=== PATIENT | male | born 1945 | race Caucasian/White ===

== ENCOUNTER 2024-01-15 06:45 | Day surgery (SDC) | payer MEDICARE, OTHER ==
[2024-01-15] MEDS: LACTATED RINGERS 1,000 ML IV ONE (07:10)
[2024-01-15] MEDS: PROPARACAINE 0.5% OPHTH DROPS 15 ML ONE (07:10)
[2024-01-15] MEDS: KETOROLAC 0.45% OPHTH DROPS ONE (07:11)
[2024-01-15] MEDS: PHENYLEPHRINE 2.5% OPHTH 2 ML DROPS ONE (07:12)
[2024-01-15] MEDS: CYCLOPENTOLATE 1% OPHTH DROPS 2 ML RIGHTEYE ONE (07:13)
[2024-01-15] MEDS ORDERED: TRIAMCIN/MOXIFLOX OPHTHALMIC 0.6 ML VIAL IO ONE (07:39)
[2024-01-15] MEDS ORDERED: EPINEPHrine 1 MG/ML AMP ONE (07:39)
[2024-01-15] MEDS ORDERED: BSS/LIDOCAINE/EPINEPHRINE 1 ML VIAL ONE (07:39)
[2024-01-15] MEDS ORDERED: BRIMONIDINE 0.2% OPHTH DROPS 5 ML ONE (07:39)
[2024-01-15] MEDS ORDERED: MIDAZOLAM 2 MG/2 ML VIAL ONE (07:39)
[2024-01-15] MEDS ORDERED: TIMOLOL 0.5% OPHTH DROPS ONE (07:39)
--- NOTE | 2024-01-15 07:39 | ANESTHESIA ---
Pre-Anesthesia VS, & Labs - Diagnosis R senile combined cataract - Procedure extraction r cataract w IOL Vital Signs: Temp Pulse Resp BP Pulse Ox O2 Flow Rate 36.2 C L 58 L 14 139/70 H 96 01/15/24 07:05 01/15/24 07:05 01/15/24 07:05 01/15/24 07:05 01/15/24 07:05 Height: 6 ft 2.5 in Weight (kg): 105 kg Body Mass Index: 29.3 BMI Classification: Overweight - NPO >8 hours - Lab Results Lab results reviewed: Yes Home Medications and Allergies Home Medications: Ambulatory Orders Amiodarone [Pacerone] 100 mg PO DAILY 01/15/24 Apixaban [Eliquis] 5 mg PO BID 01/15/24 Lisinopril [Zestril] 40 mg PO DAILY 01/15/24 Metoprolol Succinate [Toprol Xl] 25 mg PO BID 01/15/24 Spironolactone [Aldactone] 12.5 mg PO DAILY 01/15/24 Zolpidem Tartrate [Ambien] 10 mg PO HS 01/15/24 Amiodarone [Pacerone] 100 mg PO DAILY 01/15/24 Apixaban [Eliquis] 5 mg PO BID 01/15/24 Lisinopril [Zestril] 40 mg PO DAILY 01/15/24 Metoprolol Succinate [Toprol Xl] 25 mg PO BID 01/15/24 Spironolactone [Aldactone] 12.5 mg PO DAILY 01/15/24 Zolpidem Tartrate [Ambien] 10 mg PO HS 01/15/24 Allergies/Adverse Reactions: Allergies Allergy/AdvReac Type Severity Reaction Status Date / Time No Known Drug Allergies Allergy Verified 01/15/24 07:13 Anes History & Medical History - Anesthetic History Anesthesia Complications: reports: No previous complications Family history of Anesthesia Complications: Denies Family history of Malignant Hyperthermia: Denies - Medical History Cardiovascular: reports: Hypertension, Other (RBBB) Pulmonary: reports: Other Urinary: reports: Benign prostate hypertrophy Musculoskeletal: reports: Osteoarthritis Smoking Status: Former smoker Psychosocial: reports: No issues indicated Exam General: Alert, Oriented x3, Cooperative Dental: WNL Mouth Openin Fingerbreadth Neck Mobility: Normal Mallampati classification: II Thyromental Distance: 4-6 cm Respiratory: Lungs clear, Normal breath sounds, No respiratory distress Cardiovascular: Regular rate (RBBB) Neurological: Normal speech Mental/Cognitive Status: Alert/Oriented X3, Normal for patient Cognitive Status: Within normal limits Plan Anesthesia Type: MAC Consent for Procedure(s) Verified and Reviewed: Yes Code Status: Attempt Resuscitation ASA classification: 2-Mild systemic disease Is this case an emergency?: No
[2024-01-15] MEDS: TIMOLOL 0.5% OPHTH DROPS OPTH ONE (08:03)
[2024-01-15] MEDS: BRIMONIDINE 0.2% OPHTH DROPS 5 ML OPTH ONE (08:03)
[2024-01-15] MEDS: BSS/LIDOCAINE/EPINEPHRINE 1 ML SYRINGE IO ONE (08:03)
[2024-01-15] MEDS: EPINEPHrine 1 MG/ML AMP IR ONE (08:03)
[2024-01-15] MEDS: TRIAMCIN/MOXIFLOX OPHTHALMIC 0.6 ML VIAL IO ONE (08:04)
[2024-01-15] MEDS: VANCOMYCIN OPHTH (TOPICAL) 10 MG/ML SYRINGE TOP ONE (08:04)
[2024-01-15] MEDS: PROPARACAINE 0.5% OPHTH DROPS 15 ML EACHEYE ONE (08:04)
[2024-01-15] MEDS: LACTATED RINGERS 700 ML IV ONE (08:25)
[2024-01-15 08:32] VITALS: BP 146/73; O2SAT 97
--- NOTE | 2024-01-15 08:32 | ANESTHESIA POST OP EVALUATION ---
Anesthesia Post Eval - Post Anesthesia Eval Vitals: Last Vital Signs Temp 36 C L 01/15/24 08:29 Pulse 64 01/15/24 08:29 Resp 16 01/15/24 08:29 BP 146/73 H 01/15/24 08:29 Pulse Ox 97 01/15/24 08:29 O2 Flow Rate CV Function Including HR & BP: Stable Pain Control: Satisfactory Nausea & Vomiting: Negative Mental Status: Baseline Respiratory Status: Airway Patent Hydration Status: Satisfactory Anesthesia Complications: None
--- NOTE | 2024-01-15 08:35 | OPERATIVE REPORT ---
Operative Report - Other Other Information/Narrative: Date of Surgery: 01/15/24 Preop Dx: Visually significant cataract left eye. This was the first cataract surgery. Postop Dx: Same Procedure: Phacoemulsification with posterior chamber intraocular lens implant left eye Surgeon: Dr. Justin Gilliam Anesthesia: Monitored anesthesia care Complications: None Operative Indications: This is a 78-year-old M with progressive vision loss in the left eye due to 2-3+ nuclear sclerotic and 2+ cortical cataract. Best corrected visual acuity was 20/40 with glare to 20/60 vision in the left eye. Indications for surgery were: - Overall decrease in vision - Difficulty seeing words on a computer screen - Difficulty reading - Difficulty seeing street signs - Difficulty driving in low light or at night - Difficulty driving at night because of headlights from other vehicles - Decreased acuity with firearms The patient was consented at length concerning the risks and benefits of cataract surgery after which the patient expressed a desire to proceed with surgery. Operative Procedure: The patient was taken into OR#3 and placed under monitored anesthesia care. A surgical time-out was conducted confirming correct patient, correct procedure, and correct surgical site. The patient was given topical anesthesia and then prepped and draped in the usual sterile fashion. The eye was entered at the 6 and 3 oclock positions. Intracameral Shugarcaine was injected into the anterior chamber followed by a dispersive viscoelastic. A continuous-tear curvilinear capsulorhexis was performed. The nucleus was hydrodissected and phacoemulsified. The cortex was evacuated using automated infusion and aspiration. A cohesive viscoelastic was injected into the capsular bag and a 23.5 diopter intraocular lens was inserted into the bag. Infusion and aspiration were used to evacuate the viscoelastic materials from the eye. The wounds were hydrated and the eye inflated to physiologic pressure using balanced salt solution. Approximately 0.25ml of a mixture of triamcinolone and moxifloxacin was injected subconjunctivally in the superior quadrant for inf ection and inflammation prophylaxis. Wound integrity was checked with Weck-Litzy sponges. The patient was taken from the operating room in good condition and given post-op instructions.
== END 2024-01-15 06:46 | disposition home or self-care (01) ==
LOC: SDS 06:45
PROVIDERS: ATTEND Ophthalmology
DX: H25.811 Combined forms of age-related cataract, right eye (principal); I10 Essential (primary) hypertension; Z87.891 Personal history of nicotine dependence
CPT/HCPCS: 66984; A9270; J3490; J7120

== ENCOUNTER 2024-03-11 06:19 | Day surgery (SDC) | payer MEDICARE, OTHER ==
[2024-03-11] MEDS: LACTATED RINGERS 1,000 ML IV ONE (06:31)
[2024-03-11] MEDS: KETOROLAC 0.45% OPHTH DROPS ONE (06:40)
[2024-03-11] MEDS: PROPARACAINE 0.5% OPHTH DROPS 15 ML ONE (06:41)
[2024-03-11] MEDS: CYCLOPENTOLATE 1% OPHTH DROPS 2 ML ONE (06:42)
[2024-03-11] MEDS: PHENYLEPHRINE 2.5% OPHTH 2 ML DROPS ONE (06:43)
--- NOTE | 2024-03-11 07:07 | ANESTHESIA ---
Pre-Anesthesia VS, & Labs - Diagnosis LEFT EYE CATARACT - Procedure CATARACT EXTRACTION AND IOL Vital Signs: Temp Pulse Resp BP Pulse Ox O2 Flow Rate 36.3 C L 54 L 17 159/81 H 96 03/11/24 06:40 03/11/24 06:40 03/11/24 06:40 03/11/24 06:40 03/11/24 06:40 Height: 6 ft 2 in Weight (kg): 106 kg Body Mass Index: 29.9 BMI Classification: Overweight - NPO >8 hours Home Medications and Allergies Amiodarone [Pacerone] 100 mg PO DAILY 01/15/24 Apixaban [Eliquis] 5 mg PO BID 01/15/24 Lisinopril [Zestril] 40 mg PO DAILY 01/15/24 Spironolactone [Aldactone] 12.5 mg PO DAILY 01/15/24 Zolpidem Tartrate [Ambien] 10 mg PO HS 01/15/24 Allergies/Adverse Reactions: Allergies Allergy/AdvReac Type Severity Reaction Status Date / Time No Known Drug Allergies Allergy Verified 01/15/24 07:13 Anes History & Medical History - Anesthetic History Anesthesia Complications: reports: No previous complications Family history of Anesthesia Complications: Denies - Medical History Cardiovascular: reports: Hypertension, High cholesterol, Atrial fibrillation Pulmonary: reports: None Gastrointestinal: reports: None Urinary: reports: None Musculoskeletal: reports: None Endocrine/Autoimmune: reports: None Skin: reports: None Smoking Status: Former smoker Psychosocial: reports: No issues indicated - Surgical History General: reports: Bowel surgery Orthopedic: reports: Hip replacement Results - EKG Results EKG Comparison: Reviewed EKG Exam General: Alert, Oriented x3 Dental: WNL Mouth Openin Fingerbreadth Neck Mobility: Normal Mallampati classification: II Thyromental Distance: 4-6 cm Plan Anesthesia Type: MAC Consent for Procedure(s) Verified and Reviewed: Yes Code Status: Attempt Resuscitation ASA classification: 2-Mild systemic disease Is this case an emergency?: No
[2024-03-11] MEDS ORDERED: EPINEPHrine 1 MG/ML AMP ONE (07:08)
[2024-03-11] MEDS ORDERED: TRIAMCIN/MOXIFLOX OPHTHALMIC 0.6 ML VIAL IO ONE (07:08)
[2024-03-11] MEDS ORDERED: BRIMONIDINE 0.2% OPHTH DROPS 5 ML ONE (07:08)
[2024-03-11] MEDS ORDERED: TIMOLOL 0.5% OPHTH DROPS ONE (07:09)
[2024-03-11] MEDS ORDERED: BSS/LIDOCAINE/EPINEPHRINE 1 ML VIAL ONE (07:09)
[2024-03-11] MEDS ORDERED: MIDAZOLAM 2 MG/2 ML VIAL ONE (07:18)
[2024-03-11] MEDS: BRIMONIDINE 0.2% OPHTH DROPS 5 ML OPTH ONE (07:43)
[2024-03-11] MEDS: EPINEPHrine 1 MG/ML AMP IR ONE (07:43)
[2024-03-11] MEDS: TRIAMCIN/MOXIFLOX OPHTHALMIC 0.6 ML VIAL IO ONE (07:44)
[2024-03-11] MEDS: TIMOLOL 0.5% OPHTH DROPS OPTH ONE (07:44)
[2024-03-11] MEDS: BSS/LIDOCAINE/EPINEPHRINE 1 ML SYRINGE IO ONE (07:44)
[2024-03-11] MEDS: PROPARACAINE 0.5% OPHTH DROPS 15 ML EACHEYE ONE (07:45)
[2024-03-11] MEDS: VANCOMYCIN OPHTH (TOPICAL) 10 MG/ML SYRINGE TOP ONE (07:46)
[2024-03-11] MEDS: LACTATED RINGERS 800 ML IV ONE (07:55)
--- NOTE | 2024-03-11 08:07 | OPERATIVE REPORT ---
Operative Report - Other Other Information/Narrative: Date of Surgery: 03/11/24 Preop Dx: Visually significant cataract left eye. Cataract surgery was performed in the right eye on . Postop Dx: Same Procedure: Phacoemulsification with posterior chamber intraocular lens implant left eye Surgeon: Dr. Justin Gilliam Anesthesia: Monitored anesthesia care Complications: None Operative Indications: This is a 78-year-old M with progressive vision loss in the left eye due to 2+ nuclear sclerotic and 2+ cortical cataract. Best corrected visual acuity was 20/20 with glare to 20/25 vision in the left eye. Indications for surgery were: - Overall decrease in vision - Difficulty seeing words on a computer screen - Difficulty reading - Difficulty seeing words, closed captions, or game scores on TV - Difficulty seeing street signs - Difficulty driving in low light or at night - Difficulty driving at night because of headlights from other vehicles - Difficulty with glare or bright lights in any situation The patient was consented at length concerning the risks and benefits of cataract surgery after which the patient expressed a desire to proceed with surgery. Operative Procedure: The patient was taken into OR#3 and placed under monitored anesthesia care. A surgical time-out was conducted confirming correct patient, correct procedure, and correct surgical site. The patient was given topical anesthesia and then prepped and draped in the usual sterile fashion. The eye was entered at the 6 and 3 oclock positions. Intracameral Shugarcaine was injected into the anterior chamber followed by a dispersive viscoelastic. A continuous-tear curvilinear capsulorhexis was performed. The nucleus was hydrodissected and phacoemulsified. The cortex was evacuated using automated infusion and aspiration. A cohesive viscoelastic was injected into the capsular bag and a 24.0 diopter intraocular lens was inserted into the bag. Infusion and aspiration were used to evacuate the viscoelastic materials from the eye. The wounds were hydrated and the eye inflated to physiologic pressure using balanced salt solution. Approximately 0.25ml of a mixture of triamcinolone and moxifloxacin was injected trans-sclerally into the vitreous in the inferotemporal quadrant using a 30 gauge cannula. An additional 0.25ml of a mixture of triamcinolone and moxifloxacin was injected subconjunctivally in the superior quadrant for infection and inflammation prophylaxis. Wound integrity was checked with Weck-Litzy sponges. The patient was taken from the operating room in good condition and given post-op instructions.
[2024-03-11 08:11] VITALS: BP 132/76; O2SAT 95
--- NOTE | 2024-03-11 11:10 | ANESTHESIA POST OP EVALUATION ---
Anesthesia Post Eval - Post Anesthesia Eval Vitals: Last Vital Signs Temp 36.4 C L 03/11/24 08:09 Pulse 52 L 03/11/24 08:09 Resp 16 03/11/24 08:09 BP 132/76 H 03/11/24 08:09 Pulse Ox 95 03/11/24 08:09 O2 Flow Rate CV Function Including HR & BP: Stable Pain Control: Satisfactory Nausea & Vomiting: Negative Mental Status: Baseline Respiratory Status: Airway Patent Hydration Status: Satisfactory Anesthesia Complications: None
== END 2024-03-11 06:20 | disposition home or self-care (01) ==
LOC: SDS 06:19
PROVIDERS: ATTEND Ophthalmology
DX: H25.812 Combined forms of age-related cataract, left eye (principal); I48.91 Unspecified atrial fibrillation; I10 Essential (primary) hypertension; Z87.891 Personal history of nicotine dependence; Z98.41 Cataract extraction status, right eye
CPT/HCPCS: 66984; A9270; J3490; J7120